=== PATIENT | female | born 1955 ===

== ENCOUNTER 2023-06-04 07:08 | Outpatient (REF) | payer OTHER, SELFPAY ==
--- NOTE | ~2023-06-04 | XR_ITS ---
EXAMINATION: XR SHOULDER, LEFT CLINICAL INFORMATION: Left shoulder pain COMPARISON: None available. TECHNIQUE: 2 views FINDINGS: The bones and soft tissues are normal. No fracture. Glenohumeral and acromioclavicular alignment is anatomic with normal joint space. No abnormal soft tissue calcifications. XR/XR shoulder LT min 2V IMPRESSION: No acute bony pathology.
== END 2023-06-04 07:09 | disposition home or self-care (01) ==
LOC: HO.HOSX 07:08
PROVIDERS: Visit Provider Orthopaedic Surgery
DX: M25.512 Pain in left shoulder (principal)
CPT/HCPCS: 20610; 73030; J1020

== ENCOUNTER 2023-06-04 12:40 | Outpatient (AMB) | payer OTHER, SELFPAY ==
--- NOTE | 2023-06-04 12:43 | A.OFFVIS_ITS ---
Intake Intake Visit Reasons: New Pt - Left shoulder Pain Intake Note: Carrol is a 68 year old Right hand dominate female who presents as a new patient with Left shoulder pain. Patient reports her pain has been going on for a few months and is a 8 on the 1-10 pain scale. She states she is using advil and tylenol for pain which gave her mild relief. The patient states that she does use a home rowing machine on a daily basis for exercise. Allergies carisoprodol [From [facility]] Allergy (Intermediate, Verified 06/04/23 13:13) unknown erythromycin base Allergy (Intermediate, Verified 06/04/23 13:13) unknown latex Allergy (Intermediate, Verified 06/04/23 13:13) rash amoxicillin Allergy (Mild, Verified 06/04/23 13:13) unknown PFSH Surgical History (Updated 06/04/23 @ 13:06 by Keyla Kat CMA) H/O abdominal hysterectomy Social History (Updated 06/04/23 @ 13:14 by Keyla Kat CMA) Patient Tobacco Use Status: Never used Tobacco Current occupation: Right hand dominate Physical Exam Const Other: Well-nourished well-developed very friendly female awake alert and oriented x3 in no acute distress Extrem Other: Bilateral upper extremity examination shows good capillary refill, no skin lesions noted, normal sensation light touch Left shoulder examination shows full range of motion when compared to her right shoulder, 4+ out of 5 strength with supraspinatus testing, positive impingement signs, no instability Office Procedures Joint Injection/Drain Joint Injection/Drain Primary Site: left shoulder Prep: site was prepped using aseptic technique Injected: 40 mg of, DepoMedrol and 1% plain lidocaine Procedure: The patient tolerated the procedure well Coding 43641 - Large joint Procedure code (CPT) selection complete Results Reviewed Results Reviewed: X-rays of the patient's left shoulder show moderate to severe acromioclavicular joint narrowing, a type 2 acromion, no acute bony abnormalities Assessment & Plan Assessment & Plan (1) Left shoulder pain: Code(s): M25.512 - Pain in left shoulder Plan Mrs. Simpson presents with left shoulder pain most likely due to impingement syndrome. I had a lengthy discussion with the patient regarding the treatment options. The risks and benefits of a left shoulder cortisone injection were discussed at length with the patient. The patient wished to proceed. She tolerated the injection well. Activity modifications were discussed at length with the patient. She will follow up with me on an as- needed basis should her symptoms not plateau at an unacceptable level over the next few months. Feel free to call me at any time should questions regarding her orthopedic arise. I spent 22 minutes in reviewing the patient's records and imaging studies, seeing the patient and documenting in the medical record. Orders: Orders XR shoulder LT min 2V Today M25.512 - Pain in left shoulder AMB Joint Injection/Aspiration Today M25.512 - Pain in left shoulder Coding Level of Care Code New Pt Level 2 (16979) Diagnoses Left shoulder pain M25.512 CPT Codes Coding - 10263 Large joint: 69282 - Large joint ([id number])
== END 2023-06-04 13:19 | disposition home or self-care (01) ==
PROVIDERS: PCP Internal Medicine; Visit Provider Orthopaedic Surgery
DX: M25.512 Pain in left shoulder (principal)
CPT/HCPCS: 20610; 99203

== ENCOUNTER 2024-05-12 14:41 | Outpatient (AMB) | payer OTHER, SELFPAY ==
--- NOTE | 2024-05-12 14:43 | MHC.OFFVIS ---
Intake Visit Reasons: Newprob-Right shoulder pain Intake Note: Carrol is a 68 year old right hand dominate female who presents for a new problem visit with complaints of right shoulder pain. Patient reports she has tried different NSAID's withour relief of her symptoms. She denies injuries or surgeries to the shoulder. she has tried physical therapy exercises which aggravated her pain. She did have a cortisone injection given into her left shoulder at her last visit. She reports minimal discomfort in her left shoulder. She denies any weakness. Allergies carisoprodol [From [facility]] Allergy (Intermediate, Verified 05/12/24 14:43) unknown erythromycin base Allergy (Intermediate, Verified 05/12/24 14:43) unknown latex Allergy (Intermediate, Verified 05/12/24 14:43) rash amoxicillin Allergy (Mild, Verified 05/12/24 14:43) unknown Medication List - Last Reconciled 05/12/24 by Gaurang Le MD escitalopram oxalate mg PO DAILY icosapent ethyl grams PO levothyroxine mcg PO DAILY lovastatin mg PO DAILY PFSH Surgical History (Updated 06/04/23 @ 13:06 by Keyla Kat CMA) H/O abdominal hysterectomy Social History (Updated 05/12/24 @ 14:50 by MARTI Torres) Patient Tobacco Use Status: Never used Tobacco Current occupational status: retired Current occupation: Right hand dominate Physical Exam Const Other: Well-nourished well-developed very friendly female awake alert and oriented x3 in no acute distress Extrem Other: Bilateral upper extremity examination shows good capillary refill, no skin lesions noted, normal sensation light touch right shoulder examination shows slightly decreased range of motion when compared to her left shoulder, 4+ out of 5 strength with supraspinatus testing, positive impingement signs, no instability Office Procedures AMB Joint Injection/Aspiration Joint Injection/Aspiration Primary Site: right shoulder Prep: site was prepped using aseptic technique Injected: 40 mg of, DepoMedrol and 1% plain lidocaine Procedure: The patient tolerated the procedure well Coding 28362 - Large joint Procedure code (CPT) selection complete Assessment & Plan Assessment & Plan (1) Impingement of right shoulder: Code(s): M25.811 - Other specified joint disorders, right shoulder Category: Medical Plan Mrs. Simpson Presents with right shoulder pain due to impingement syndrome. The risks and benefits of a right shoulder cortisone injection were discussed at length with the patient. The patient wished to proceed. She tolerated the injection well. She will continue with her [id number] exercises to prevent stiffness. She will follow up with me on an as-needed basis should her symptoms not plateau at an unacceptable level over the next few months. Feel free to call me at any time should questions regarding her orthopedic management arise. I spent 22 minutes in reviewing the patient's records and imaging studies, seeing the patient and documenting in the medical record. Orders: Orders AMB Joint Injection/Aspiration Today M25.811 - Other specified joint disorders, right shoulder Coding Level of Care Code Est Pt Level 3 (23310) Complex EM visit Add On G2211 Diagnoses Impingement of right shoulder M25.811 CPT Codes Coding - 80885 Large joint: 35011 - Large joint ([id number])
--- OUTSIDE RECORDS SUMMARY | 2024-05-12 18:07 | XMS_ITS | Clinical Summary ---
Author Organization [facility] Address [address] [place] [address] Care Team Providers Care Kitchenwhere Maker Name Role Phone Ashwini Calderon MD Primary Care Provider Allergies Active Allergy Reactions Criticality Noted Date Comments Amoxicillin 04/12/2020 Erythromycin 04/12/2020 Latex 04/12/2020 Carisoprodol 04/12/2020 Medications Medication Sig Dispensed Refills Start Date End Date Status ALPRAZolam (XANAX) 0.5 MG tablet 0 04/07/2020 Active escitalopram (LEXAPRO) 20 MG tablet Take 20 mg by mouth daily. 0 01/25/2020 Active lovastatin (MEVACOR) 20 MG tablet Take 20 mg by mouth daily. 0 01/16/2020 Active methylPREDNISolone (MEDROL DOSEPACK) 4 MG tablet follow package directions 21 tablet 0 04/12/2020 Active Social History Tobacco Use Types Packs/Day Years Used Date Smoking Tobacco: Never Assessed Sex and Gender Information Value Date Recorded Sex Assigned at Not on file Gender Identity Not on file Sexual Orientation Not on file Last Filed Vital Signs Vital Sign Reading Time Taken Comments Blood Pressure - - Pulse - - Temperature - - Respiratory Rate - - Oxygen Saturation - - Inhaled Oxygen Concentration - - Weight 61.2 kg (135 lb) 04/12/2020 1:30 PM EST Height 162.6 cm (5' 4 ) 04/12/2020 1:30 PM EST Body Mass Index 23.17 04/12/2020 1:30 PM EST Plan of Treatment Health Maintenance Due Date Last Done Comments Hepatitis C Screening 1955 COVID-19 Vaccine (#1) 1955 Depression Screening 1968 Preventative Health Evaluation 1974 DTap / Tdap / Td (1 - Tdap) 05/29/1975 Colon Cancer Screening (Colonoscopy) 2001 Breast Cancer Screening (Mammogram) 2006 Shingrix-Zoster Vaccine (1 of 2) 2006 Fall Risk Assessment 2021 Osteoporosis Screening (DEXA Scan) 2021 Pneumococcal Vaccine (1 of 1 - PCV) 2021 Influenza Vaccine (#1) 2023 RSV Adult > 60+ Yrs or Pregn ant (1 - 1-dose 75+ series) 05/29/2031 Hepatitis B Vaccines Aged Out No long er eligible based on patient's age to complete this topic RSV Ped < 20 months Aged Out No longe r eligible based on patient's age to complete this topic Care Teams Kitchenwhere Maker Relationship Specialty Start Date End Date Ashwini Calderon MD [address], [place] PCP - General Pulmonary Disease 04/12/20
--- OUTSIDE RECORDS SUMMARY | 2024-05-12 18:07 | XMS_ITS | Clinical Summary ---
Author Organization [address] [place] [address] [place] [phone] Phone Care Team Providers Care Safety Council Director Name Role Phone Sharlene Mejia MD Primary Care Provider Allergies Active Allergy Reactions Criticality Noted Date Comments Amoxicillin 12/14/2020 Carisoprodol 12/14/2020 Erythromycin 12/14/2020 Latex 12/14/2020 Medications icosapent ethyL 0.5 gram capsule Take 1 g by mouth 2 times daily. Active levothyroxine (SYNTHROID, LEVOTHROID) 75 mcg tablet Take 75 mcg by mouth daily. Active lovastatin (MEVACOR) 20 mg tablet Take 20 mg by mouth at bedtime. Active escitalopram (LEXAPRO) 20 mg tablet Take 20 mg by mouth daily. Active ALPRAZolam (XANAX) 0.5 mg tablet Take 1 tablet (0.5 mg total) by mouth 2 (two) times a day if needed for anxiety. Max Daily Amount: 1 mg Active EPINEPHrine (EPIPEN) 0.3 mg/0.3 mL injection INJECT 0.3 MG INTRAMUSCULARLY ONCE 06/03/19 24 Active methylPREDNISo lone (MEDROL) 4 mg tablet See administration instructions. 04/12/19 21 Active triamcinolone acetonide (KENALOG-40) 40 mg/mL injection Inject 1 mL (40 mg total) into the joint. 02/01/20 23 Active Encounters Date Type Department Care Team Description 02/19/2024 11:00 AM EST Office Visit Orthopedic Surgery [address] [place] [address] Racquel Cottrell PA Pain of right upper extremity (Primary Dx); Hand arthritis; CMC arthritis from Last 3 Months Surgical History Surgery Date Site/Laterality Comments HYSTERECTOMY PROCEDURE: HISTORICAL HYSTERECTOMY Medical History Medical History Date Comments Hyperlipidemia DX:Hyperlipidemi a Disorder of thyroid DX:Disorder of thyroid Anxiety DX:Anxiety Social History Tobacco Use Types Packs/Day Years Used Date Smoking Tobacco: Never Smokeless Tobacco: Never Alcohol Use Standard Drinks/Week Comments Yes 0 (1 standard drink = 0.6 oz pur e alcohol) Comments Unknown Sex and Gender Information Value Date Recorded Sex Assigned at Not on file Legal Sex Female 5:49 AM EST Gender Identity Not on file Sexual Orientation Not on file Obstetrics History Last Filed Vital Signs Vital Sign Reading Time Taken Comments Blood Pressure - - Pulse - - Temperature - - Respiratory Rate - - Oxygen Saturation - - Inhaled Oxygen Concentration - - Weight 71.7 kg (158 lb) 01/31/2023 1:49 PM EST Height 157.5 cm (5' 2 ) 01/31/2023 1:49 PM EST Body Mass Index 28.9 01/31/2023 1:49 PM EST Plan of Treatment Upcoming Encounters Date Type Department Care Team (Late st Contact Info) Description 05/21/2024 11:15 AM EST Office Visit Orthopedic Surgery - [place] [address] [phone] Teri Martin MD 175 [facility] [address] [place] [address] Health Maintenance Due Date Last Done Comments DTaP,Tdap,and Td Vaccines (1 - Tdap) 05/29/1975 Pneumococcal Vaccine: 50+ Years (1 of 1 - PCV) 2006 Zoster Vaccines (1 of 2) 2006 Cholesterol Screening (Lipid Panel) 02/17/2022 Colorectal Cancer Screening: Colonoscopy 02/17/2022 Depression Screening 02/17/2022 Falls Risk Assessment 02/17/2022 Hepatitis C Screening 02/17/2022 Social Influencers of Health Screening 02/17/2022 Breast Cancer Screening 05/04/2022 05/04/19 21, 12/15/2017 COVID-19 Vaccine (1 - 2023-2 5 season) 2023 Influenza Vaccine (#1) 2023 Osteoporosis Screening (Bone Density Screening) 05/04/2030 05/04/2020 RSV Immunization Patients 60 + Years Old (1 - 1-dose 75+ series) 05/29/2031 HIB Vaccines Aged Out No longer eligi ble based on patient's age to complete this topic HPV Vaccines Aged Out No longer eligi ble based on patient's age to complete this topic Hepatitis A Vaccines Aged Out No long er eligible based on patient's age to complete this topic Hepatitis B Vaccines Aged Out No long er eligible based on patient's age to complete this topic IPV Vaccines Aged Out No longer eligi ble based on patient's age to complete this topic MMR Vaccines Aged Out No longer eligi ble based on patient's age to complete this topic Meningococcal ACWY Vaccine Aged Out N o longer eligible based on patient's age to complete this topic Meningococcal B Vacine Aged Out No lo nger eligible based on patient's age to complete this topic RSV Immunization Patients Under 20 months Aged Out No longer eligible b ased on patient's age to complete this topic Varicella Vaccines Aged Out No longer eligible based on patient's age to complete this topic Procedures Procedure Name Priority Date/Time Associated Diagnosis Comments IA ARTHROCENTESIS/ASPI RATION/INJECTION SMALL JOINT/BURSA WO U/S GUIDANCE Routine 02/19/2024 11:00 AM EST CMC arthritis [facility] SCREENING DIGITAL Routine 05/04/2020 11:26 AM EST Encounter for screening mammogram for malignant neoplasm of breast [facility] DEXA AXIAL SKELETON Routine 05/04/2020 10:37 AM EST Other specified disorders of bone density and structure, other site from Last 3 Months or Most Recently Relevant to Health Maintenance Results * IA ARTHROCENTESIS/ASPIRATION/INJECTION SMALL JOINT/BURSA WO U/S GUIDANCE (02/19/2024 11:00 AM EST) Narrative Racquel Cottrell PA - 02/19/2024 11:00 AM EST BETTYE Mancera ? 02/19/2024 12:04 PM Hand / UE Inj/Asp: R thumb CMC for osteoarthritis Indications: pain Details: 25 G needle, dorsal approach Medications: 40 mg triamcinolone acetonide 40 mg/mL; 0.5 mL lidocaine 1 % Informed Consent: ??Laterality: ??Right ??Relevant images/test results available and reviewed: yes ?Health status cleared: ??Yes ??Procedure/treatment, purpose, treatment alternatives, risks/potential complications and benefits explained: yes ?Risk/complications/benefits details: ??Risks of infection, thinning of the skin, skin discoloration discussed. ??Discussed the possibility of increased pain, mild redness and swelling at injection site. ??Discussed uncommon side effect of facial flushing after cortisone injection. ?? Patient may use ice, Tylenol or ibuprofen if they can take it. ??Benefits pain management ??Patient questions answered: yes ?Patient agrees, verbalizes understanding, and wants to proceed: yes ?Consent given by: ??Patient ??Informed consent discussion completed by Physician/SIMEON with patient: ?? Verbal ??Pre-procedure timeout performed: yes ?? us Racquel WEN IN CLINIC/BEDSIDE ORDERABLES Final Result * [facility] SCREENING DIGITAL (05/04/2020 11:26 AM EST) Anatomical Region Laterality Modality Mammography 05/04/2020 9:07 AM EST Narrative 05/04/2020 11:26 AM EST [facility] Diagnostic Imaging Department [address] [place], [place] [id number] Patient: ??NATE REYES ?/Age/Sex: 1955 64 - F Unit#: ??[id number] ? Location/Status: ??SPDIMAM/REG CLI ? Mnemonic/Ordering Site: ??DIGSC/SPMAM Ordering Physician: ??Nam CALDERON MD [facility] Screening Digital - 05/04/20 - 932 EXAM: [place] Screening Digital EXAM DATE AND TIME: 05/04/2020 9:34 AM HISTORY: ??64-year-old female for annual screening mammography. ??Family history of breast carcinoma in an aunt within her 70's. COMPARISON: ??12/15/2017 through 10/16/2015 TECHNIQUE: CC and MLO views of both breasts were obtained using full field digital mammography. Bilateral digital breast tomosynthesis was performed in the MLO projection. 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 TISSUE DENSITY: a. The breasts are almost entirely fatty. FINDINGS: No suspicious masses, grouped microcalcifications, or areas of architectural distortion are seen. ??Stable benign calcifications are present bilaterally. ??The skin and vascularity are unremarkable. IMPRESSION: Stable mammographic appearance of the breasts. ??No evidence of malignancy is seen. A negative mammogram in the presence of a clinically suspicious palpable abnormality does not preclude the possibility of malignancy or alter the indications for biopsy. BI-RADS: ??Category 2: Benign RECOMMENDATION(S): 1: Routine screening mammogram BILATERAL in 1 year. 82421, 85384 3342F, 7025F Dictating Physician: ??BHARATI MORALES MD Electronically Signed by: ??BHARATI MORALES MD Dic Date/Time: ??05/04/20 1123 Sign date/Time: ??05/04/20 1126 Procedure Note Dalia Morales MD - 03/05/2022 [facility] Diagnostic Imaging Department [address] [place] [id number] Patient: NATE REYES ANN /Age/Sex: 1955 - 64 -F Unit#: [id number] Location/Status: SPDIMAM/REG CLI Mnemonic/Ordering Site: [facility] Ordering Physician: Nam CALDERON MD [facility] Screening Digital - 05/04/20932 EXAM: [facility] Screening Digital EXAM DATE AND TIME: 05/04/2020 9:34 AM HISTORY: 64-year-old female for annual screening mammography. Familyhistory of breast carcinoma in an aunt within her 70's. COMPARISON: 12/15/2017 through 10/16/2015 TECHNIQUE: CC and MLO views of both breasts were obtained using fullfield digital mammography. Bilateral digital breast tomosynthesis was performedin the MLO projection. Computer aided detection with the [employer] 7.2-[employer] SPOR[employer]as employed. TISSUE DENSITY: a. The breasts are almost entirely fatty. FINDINGS: No suspicious masses, grouped microcalcifications, or areas ofarchitectural distortion are seen. Stable benign calcifications are presentbilaterally. The skin and vascularity are unremarkable. IMPRESSION: Stable mammographic appearance of the breasts. No evidence of malignancyis seen. A negative mammogram in the presence of a clinically suspicious palpable abnormality does not preclude the possibility of malignancy or alter the indications for biopsy. BI-RADS: Category 2: Benign RECOMMENDATION(S): 1: Routine screening mammogram BILATERAL in 1 year. 95847, 73863 3342F, 7025F Dictating Physician: BHARATI MORALES MD Electronically Signed by: BHARATI MORALES MD Dic Date/Time: 05/04/20 1123 Sign date/Time: 05/04/20 1126 Ashwini Calderon MD IMG BI PROCEDURES Mary l Result * [facility] DEXA AXIAL SKELETON (05/04/2020 10:37 AM EST) Anatomical Region Laterality Modality Mammography 05/04/2020 9:09 AM EST Narrative 05/04/2020 10:37 AM EST [facility] Diagnostic Imaging Department [address] [place] [address] Patient: ??NATE REYES ?/Age/Sex: 1955 - 64 - F Unit#: ??[id number] ? Location/Status: ??SPDIMAM/REG CLI ? Mnemonic/Ordering Site: ??MAMDEXAAX/SPMAM Ordering Physician: ??Nam CALDERON MD [facility] Dexa Axial Skeleton - 05/04/20949 HISTORY: ??The patient is a 64-year-old postmenopausal female with clinical concern for metabolic bone disease. FINDINGS: ??Dual energy x-ray absorptiometry of the lumbar spine and femurs is performed. The mean bone mineral density at L1-3 is 1.161 gm/cm2 which is 99% of that of young normals and 113% of that of age matched controls. This yields a T- score of -0.1 and a Z-score of 1.1 and there is therefore no evidence of osteoporosis or osteopenia here. The mean bone mineral density of the femurs bilaterally is 1.025 gm/cm2 which is 102% of that of young normals and 115% of that of age matched controls. ??This yields a T-score of 0.1 and a Z-score of 1.0 and there is therefore no evidence of osteoporosis or osteopenia here. IMPRESSION: 1. There is no evidence of osteoporosis or osteopenia. ??There has been a decrease of 3.6% in bone mineral density in the lumbar spine since the prior examination of 03/03/2017. ??There has been a decrease of 6.3% in bone mineral density in the right femur and an increase of 1.6% in bone mineral density in the left femur. 2. FRAX analysis yields a 10-year probability of major osteoporotic fracture of 7.1% and a 10-year probability of hip fracture of 0.3%. Code 52073 Dictating Physician: ??ALBER PRIETO MD Electronically Signed by: ??ALBER PRIETO MD Dic Date/Time: ??05/04/20 1036 Sign date/Time: ??05/04/20 1037 Procedure Note Alber Prieto MD - 03/05/2022 [facility] Diagnostic Imaging Department [address] [place] [id number] Patient: ERICJYOTI /Age/Sex: 1955 - 64 -F Unit#: [id number] Location/Status: SPDIMAM/REG CLI [facility] Ordering Physician: Nam CALDERON MD [facility] Dexa Axial Skeleton - 05/04/20 - 7904 HISTORY: The patient is a 64-year-old postmenopausal female withclinical concern for metabolic bone disease. FINDINGS: Dual energy x-ray absorptiometry of the lumbar spine and femursis performed. The mean bone mineral density at L1-3 is 1.161 gm/cm2 which is99% of that of young normals and 113% of that of age matched controls. Thisyields a T- score of -0.1 and a Z-score of 1.1 and there is therefore no evidence of osteoporosis or osteopenia here. The mean bone mineral density of the femurs bilaterally is 1.025 gm/nc5vlukh is 102% of that of young normals and 115% of that of age matched controls.This yields a T-score of 0.1 and a Z-score of 1.0 and there is therefore noevidence of osteoporosis or osteopenia here. IMPRESSION: 1. There is no evidence of osteoporosis or osteopenia. There has been a decrease of 3.6% in bone mineral density in the lumbar spine since theprior examination of 03/03/2017. There has been a decrease of 6.3% in bonemineral density in the right femur and an increase of 1.6% in bone mineral densityin the left femur. 2. FRAX analysis yields a 10-year probability of major osteoporoticfracture of 7.1% and a 10-year probability of hip fracture of 0.3%. Code 56828 Dictating Physician: ALBER PRIETO MD Electronically Signed by: ALBER PRIETO MD Dic Date/Time: 05/04/20 1036 Sign date/Time: 05/04/20 1037 Ashwini Calderon MD IMG BI PROCEDURES Mary l Result from Last 3 Months or Most Recently Relevant to Health Maintenance Insurance MEDICARE [employer] Care Teams Safety Council Director Relationship Specialty Start Date End Date Sharlene Mejia MD [address] [place] [id number] PCP - General 04/17/23
== END 2024-05-12 15:38 | disposition home or self-care (01) ==
PROVIDERS: PCP Internal Medicine; Visit Provider Orthopaedic Surgery
DX: M25.811 Other specified joint disorders, right shoulder (principal)
CPT/HCPCS: 20610; 99213

== ENCOUNTER → 2024-05-12 14:41 | Outpatient (BNVA) | payer OTHER, SELFPAY | PROVIDERS: PCP Internal Medicine; Visit Provider Orthopaedic Surgery | DX: M25.811 Other specified joint disorders, right shoulder (principal) | CPT/HCPCS: 20610; J2003; J3301 ==